=== PATIENT | male | born 1960 | race Caucasian/White ===

== ENCOUNTER → 2018-05-05 05:07 | Emergency (ER) | payer BC ==
[~2018-05-05 05:07] MED LIST: Potassium Chlor TAB* 20 MEQ TAB.ER PO ONE
--- NOTE | 2018-05-05 05:31 | ED ---
GI/ HPI - HPI Summary HPI Summary: This patient is a 58 year old M presenting to [facility] with a chief complaint of inability to urinate that began approximately at 0330. The patient rates the pain 10/10 in severity. Symptoms aggravated by nothing. Symptoms alleviated by nothing. Patient reports hematuria and dysuria. Patient denies fever and back pain. Patient states he has not had similar symptoms previously. - History of Current Complaint Chief Complaint: EDUrogenitalProblems Time Seen by Provider: 05/05/18 05:18 Stated Complaint: POSS UTI Hx Obtained From: Patient Onset/Duration: Started Hours Ago, Atraumatic, Still Present Timing: Constant Severity: Severe Current Severity: Severe Pain Intensity: 10 Associated Signs and Symptoms: Positive: Other: - Positive hematuria and dysuria. Negative fever and back pain. Aggravating Factor(s): Nothing Alleviating Factor(s): Nothing - Allergy/Home Medications Allergies/Adverse Reactions: Allergies Allergy/AdvReac Type Severity Reaction Status Date / Time No Known Allergies Allergy Verified 05/05/18 05:14 Home Medications: Home Medications Doxazosin TAB* 4 mg PO DAILY 05/05/18 [History Confirmed 05/05/18] Escitalopram (NF) 20 mg PO DAILY 05/05/18 [History Confirmed 05/05/18] Finasteride TAB* [Proscar TAB*] 5 mg PO DAILY 05/05/18 [History Confirmed ] Nebivolol TAB (NF) [Bystolic TAB (NF)] 5 mg PO DAILY 05/05/18 [History Confirmed 05/05/18] Rivaroxaban TAB(*) [Xarelto 20 mg] 1 tab PO BID 05/05/18 [History Confirmed 02/11] Valsartan/Hydrochlorothiazide [Valsartan-Hctz 160-25 mg Tab] 1 tab PO DAILY 02/11 [History Confirmed 05/05/18] amLODIPine TAB* [Norvasc 5 mg TAB*] 1 tab PO DAILY 05/05/18 [History Confirmed 05/05/18] PMH/Surg Hx/FS Hx/Imm Hx Previously Healthy: No Cardiovascular History: Reports: Hx Hypertension History: Reports: Other Problems/Disorders - Splenomegaly Infectious Disease History: No Infectious Disease History: Denies: Traveled Outside the [place] in Last 30 Days - Social History Occupation: Employed Full-time Lives: Alone Alcohol Use: None Hx Substance Use: No Substance Use Type: Reports: None Hx Tobacco Use: No Smoking Status (MU): Never Smoked Tobacco Review of Systems Negative: Fever Genitourinary: Other - Positive inability to urinate Positive: dysuria, hematuria Positive: Other - Negative back pain All Other Systems Reviewed And Are Negative: Yes Physical Exam - Summary Physical Exam Summary: VITAL SIGNS: Reviewed. GENERAL: Patient is a well-developed and nourished male who is lying comfortable in the stretcher. Patient is not in any acute respiratory distress. HEAD AND FACE: No signs of trauma. No ecchymosis, hematomas or skull depressions. No sinus tenderness. EYES: PERRLA, EOMI x 2, No injected conjunctiva, no nystagmus. EARS: Hearing grossly intact. Ear canals and tympanic membranes are within normal limits. MOUTH: Oropharynx within normal limits. NECK: Supple, trachea is midline, no adenopathy, no JVD, no carotid bruit, no c- spine tenderness, neck with full ROM. CHEST: Symmetric, no tenderness at palpation LUNGS: Clear to auscultation bilaterally. No wheezing or crackles. CVS: Regular rate and rhythm, S1 and S2 present, no murmurs or gallops appreciated. ABDOMEN: Soft, suprapubic fullness and tenderness. No signs of distention. No rebound no guarding, and no masses palpated. Bowel sounds are normal. EXTREMITIES: FROM in all major joints, no edema, no cyanosis or clubbing. NEURO: Alert and oriented x 3. No acute neurological deficits. Speech is normal and follows commands. SKIN: Dry and warm Triage Information Reviewed: Yes Vital Signs On Initial Exam: Initial Vitals Temp Pulse Resp BP Pulse Ox 98.7 F 90 16 156/81 100 05/05/18 05:09 05/05/18 05:09 05/05/18 05:09 05/05/18 05:09 05/05/18 05:09 Vital Signs Reviewed: Yes Diagnostics - Vital Signs Vital Signs Temp Pulse Resp BP Pulse Ox 05/05/18 05:09 98.7 F 90 16 156/81 100 - Laboratory Result Diagrams: 05/05/18 05:41 05/05/18 05:41 Lab Statement: Any lab studies that have been ordered have been reviewed, and results considered in the medical decision making process. Re-Evaluation - Re-Evaluation First Eval Re-Evaluation Time: 05:40 Change: Improved Comment: There is a liter of urine in the bag. The patient reports feeling better. GIGU Course/Dx - Course Course Of Treatment: This patient is a 58 year old M presenting to [facility] with a chief complaint of inability to urinate that began approximately 2 hours ago. Physical Exam Findings: Suprapubic fullness and tenderness. Bloodwork and UA obtained. In the ED course the patient was given potassium chlor. Patient will be discharged with follow up from PCP and urology. The patient is agreeable with this plan. - Diagnoses Provider Diagnoses: Acute urinary retention Discharge - Sign-Out/Discharge Documenting (check all that apply): Patient Departure - Discharge Plan Condition: Stable Disposition: HOME Patient Education Materials: Urinary Retention in Men (ED), Clinton Catheter Placement and Care (ED) Referrals: No Primary Care Phys,NOPCP [Primary Care Provider] - 2 Days Hamzah Slater MD [Medical Doctor] - 1 Day Additional Instructions: RETURN TO THE EMERGENCY DEPARTMENT FOR NEW OR WORSENING SYMPTOMS - Billing Disposition and Condition Condition: STABLE Disposition: Home - Attestation Statements Document Initiated by Scribe: Yes Documenting Scribe: Payton Gleason Provider For Whom Scribe is Documenting (Include Credential): Dr. Lily Arthur MD Scribe Attestation: Payton Resendiz scribed for Dr. Lily Arthur MD on 05/05/18 at 2131. Scribe Documentation Reviewed: Yes Provider Attestation: The documentation as recorded by the Payton cooney accurately reflects the service I personally performed and the decisions made by me, Dr. Lily Arthur MD Status of Scribe Document: Viewed
[2018-05-05 05:51] LABS: ABS Basophils 0 10^3/ul (0-0.2); ABS Eosinophils 0.1 10^3/ul (0-0.6); ABS Monocytes 0.5 10^3/ul (0-0.8); ABS Neutrophils 5.4 10^3/ul (1.5-7.7); ABS Nucleated RBC 0 10^3/ul; Eosinophil % 1.1 %; Hematocrit 43 % (42-52); Hemoglobin 14.4 g/dl (14.0-18.0); Lymphocyte % 14.2 %; Mean Corpuscular HGB Conc 34 g/dl (31-36); Mean Corpuscular Hemoglobin 30 pg (27-31); Mean Corpuscular Volume 89 fL (80-94); Mean Platelet Volume 9.2 fL (7.4-10.4); Nucleated Red Blood Cells % 0; Platelet Count 147 10^3/ul (150-450); Red Blood Count 4.82 10^6/ul (4.00-5.40); Red Cell Distribution Width 15 % (10.5-15); White Blood Count 6.9 10^3/ul (3.5-10.8)
[2018-05-05 05:57] LABS: Urine Appearance Clear; Urine Bacteria 1+ (Absent); Urine Bilirubin Negative (Negative); Urine Blood 2+ (Negative); Urine Color Straw; Urine Glucose Negative (Negative); Urine Ketones Negative (Negative); Urine Nitrite Negative (Negative); Urine Protein Negative (Negative); Urine Red Blood Cell Trace(0-2/hpf) (Absent); Urine Specific Gravity 1.005 (1.010-1.030); Urine Urobilinogen Negative (Negative); Urine White Blood Cell Absent (Absent)
[2018-05-05 06:01] LABS: Activated Partial Thrombo Time 37.4 seconds (26.0-36.3); INR 2.51 (0.77-1.02)
[2018-05-05 06:07] LABS: Albumin/Globulin Ratio 1.7 (1-3); BUN/Creatinine Ratio 23.1 (8-20); Calcium 10.2 mg/dL (8.6-10.3); EGFR Non-African American 63.8 (>60); Globulin 2.3 g/dL (2-4); Potassium 3.1 mmol/L (3.5-5.0); Total Bilirubin 0.9 mg/dL (0.2-1.0); Total Protein 6.3 g/dL (6.4-8.9)
[2018-05-05 06:33] VITALS: BP 96/59
== END | disposition home or self-care (01) ==
LOC: ED 05:07
DX: R33.9 Retention of urine, unspecified (principal); R31.9 Hematuria, unspecified; R30.0 Dysuria; I10 Essential (primary) hypertension
CPT/HCPCS: 36415; 80053; 81003; 81015; 85025; 85610; 85730; 87086; 99282; A9270-GY

== ENCOUNTER 2018-12-09 02:04 | Emergency (ER) | payer BC ==
--- NOTE | 2018-12-09 02:50 | ED ---
GI/ HPI - HPI Summary HPI Summary: Patient is a 58 y/o M presenting to ED with complaints of urinary retention and bladder spasms for the past day. Patient has PMHx of BPH and has an indwelling spaulding catheter in place. He notes that he has had this in place since April 2018. Patient estimates that he has had nine previous similar episodes. He had a recent infection as well, patient was placed on Cephalexin 500 mg BID. He finished this antibiotic three days ago. He denies fevers and chills. During previous episodes, he states that he had previous replacements of Spaulding catheters and notes that when balloon was decompressed, urine "shot out". Catheter was flushed and balloon decompressed, 100 cc urine produced. Patient reports that his bladder still felt "full". Catheter to be replaced. PMHx of HTN. FMHx of renal disease. Patient does not use tobacco, alcohol, or drugs. On triage, pain is rated 8/10, nothing is noted to aggravate/alleviate Sx. Home medications and allergies are reviewed. - History of Current Complaint Chief Complaint: EDUrogenitalProblems Time Seen by Provider: 12/09/18 02:20 Stated Complaint: CATH ISSUE PER PT Hx Obtained From: Patient Onset/Duration: Started Hours Ago, Still Present Timing: Constant, Lasting Hours Severity: Severe Current Severity: Severe Pain Intensity: 8 Location of Pain: Other - spasms at bladder area Pain Characteristics: Other: - spasms Associated Signs and Symptoms: Positive: Abdominal Pain - bladder spasms, Other : - positive - urinary retention; negative - chills. Negative: Fever - Allergy/Home Medications Allergies/Adverse Reactions: Allergies Allergy/AdvReac Type Severity Reaction Status Date / Time No Known Allergies Allergy Verified 12/09/18 02:08 PMH/Surg Hx/FS Hx/Imm Hx Cardiovascular History: Reports: Hx Hypertension History: Reports: Other Problems/Disorders - Splenomegaly, enlarged prostate Sensory History: Denies: Hx Deafness Infectious Disease History: No Infectious Disease History: Denies: Traveled Outside the [place] in Last 30 Days - Family History Known Family History: Positive: Renal Disease - Social History Alcohol Use: None Hx Substance Use: No Substance Use Type: Reports: None Hx Tobacco Use: No Smoking Status (MU): Never Smoked Tobacco Review of Systems Negative: Fever, Chills Genitourinary: Other - positive - urinary retention Positive: pain - positive - bladder spasms All Other Systems Reviewed And Are Negative: Yes Physical Exam - Summary Physical Exam Summary: Constitutional: Well-developed, Well-nourished, Alert. (-) Distressed Skin: Warm, Dry; Hyperpigmentation of the lower legs secondary to chronic BLE venous stasis. HENT: Normocephalic; Atraumatic Eyes: Conjunctiva normal Neck: Musculoskeletal ROM normal neck. (-) JVD, (-) Stridor, (-) Tracheal deviation Cardio: Rhythm regular, rate normal, Heart sounds normal; Intact distal pulses; The pedal pulses are 2+ and symmetric. Radial pulses are 2+ and symmetric. Pulmonary/Chest wall: Effort normal. (-) Respiratory distress, (-) Wheezes, (-) Rales Abd: Soft, (+) Suprapubic tenderness, (-) Distension, (-) Guarding, (-) Rebound Gential Exam: Indwelling spaulding catheter in place, no blood at the meatus Musculoskeletal: BLE venous stasis Neuro: Alert, Oriented x3 Psych: Mood and affect Normal Triage Information Reviewed: Yes Vital Signs On Initial Exam: Initial Vitals Temp Pulse Resp BP Pulse Ox 98 F 70 18 169/105 98 12/09/18 02:05 12/09/18 02:05 12/09/18 02:05 12/09/18 02:05 12/09/18 02:05 Vital Signs Reviewed: Yes Diagnostics - Vital Signs Vital Signs Temp Pulse Resp BP Pulse Ox 12/09/18 02:05 98 F 70 18 169/105 98 - Laboratory Lab Statement: Any lab studies that have been ordered have been reviewed, and results considered in the medical decision making process. Re-Evaluation - Re-Evaluation First Eval Re-Evaluation Time: 03:15 Comment: UA is positive for UTI, could be contributing to hematuria and clot that caused obstruction, will treat with ten days of Keflex, follow up with urology. Results discussed with patient, he is agreeable with discharge plan. GIGU Course/Dx - Course Course Of Treatment: Patient is a 58 y/o M presenting to ED with complaints of urinary retention and bladder spasms for the past day. Patient has PMHx of BPH and has an indwelling spaulding catheter in place. He notes that he has had this in place since April 2018. Patient estimates that he has had nine previous similar episodes. He had a recent infection as well, patient was placed on Cephalexin 500 mg BID. He finished this antibiotic three days ago. He denies fevers and chills. On physical exam, suprapubic tenderness is noted, indwelling spaulding catheter in place, no blood at the meatus, chronic hyperpigmentation of the lower legs secondary to chronic BLE venous stasis. Spaulding catheter was flushed and balloon decompressed, 100 cc dark urine produced. Spaulding catheter was replaced, 600 cc of urine obtained. UA is positive for UTI, could be contributing to hematuria and clot that caused obstruction, will treat with ten days of Keflex. He was given 500 mg Keflex in ED. Patient discharged and to follow up with urology and PCP. - Diagnoses Provider Diagnoses: UTI (urinary tract infection), Obstruction of Spaulding catheter Discharge - Sign-Out/Discharge Documenting (check all that apply): Patient Departure - discharge Patient Received Moderate/Deep Sedation with Procedure: No - Discharge Plan Condition: Stable Disposition: HOME Prescriptions: Cephalexin CAP* [Keflex CAP*] 500 mg PO TID 10 Days #29 cap Patient Education Materials: Urinary Tract Infection in Men (DC), Spaulding Catheter Placement and Care (ED) Referrals: Tyler Oshea MD [Primary Care Provider] - - Billing Disposition and Condition Condition: STABLE Disposition: Home - Attestation Statements Document Initiated by Izabella: Yes Documenting Scribe: CELIA SARMIENTO Provider For Whom Izabella is Documenting (Include Credential): THERESA RASMUSSEN MD Scribe Attestation: CELIA Resendiz, scribed for THERESA RASMUSSEN MD on 12/09/18 at 0652. Scribe Documentation Reviewed: Yes Provider Attestation: The documentation as recorded by the CELIA cooney accurately reflects the service I personally performed and the decisions made by me, THERESA RASMUSSEN MD Status of Scribe Document: Viewed
[2018-12-09 03:13] LABS: Urine Appearance Cloudy; Urine Bacteria 1+ (Absent); Urine Bilirubin Negative (Negative); Urine Blood 3+ (Negative); Urine Color Yellow; Urine Glucose Negative (Negative); Urine Ketones Negative (Negative); Urine Nitrite Negative (Negative); Urine Protein 1+(30 mg/dL) (Negative); Urine Red Blood Cell 3+(>10/hpf) (Absent); Urine Urobilinogen Negative (Negative); Urine White Blood Cell 3+(>20/hpf) (Absent)
[2018-12-09] MEDS ORDERED: Cephalexin CAP* 500 MG PO ONE (03:14)
[2018-12-09 03:47] VITALS: BP 148/90
== END 2018-12-09 03:46 | disposition home or self-care (01) ==
LOC: ED 02:04
DX: N39.0 Urinary tract infection, site not specified (principal); T83.098A Other mechanical complication of other urinary catheter, initial encounter; I10 Essential (primary) hypertension
CPT/HCPCS: 81003; 81015; 87077; 87086; 87186; 99282; A9270-GY

== ENCOUNTER 2018-12-10 00:46 | Emergency (ER) | payer BC ==
--- NOTE | 2018-12-10 01:25 | ED ---
GI/ HPI - HPI Summary HPI Summary: This pt is a 58 Y/O M presenting to [facility] with a CC of a clogged spaulding catheter. He states that he was here on 12/09/18 and had his catheter replaced. The last time his spaulding was emptied was 221412/09/18. He states that he has suprapubic abdominal pain that is rated a 6/10 in severity. He denies any CP, SOB, N/V, headaches, fevers, and chill. He stated no alleviating factors. He has a PMHx of hypertension, splenomegaly, enlarged prostate, and renal disease is in his FHx. - History of Current Complaint Chief Complaint: EDUrogenitalProblems Time Seen by Provider: 12/10/18 00:55 Stated Complaint: PLUGGED CATH PER PT Hx Obtained From: Patient Onset/Duration: Started Hours Ago - symptoms started after 221412/09/18, Still Present, Worse Since Timing: Constant Severity: Mild Current Severity: Moderate Pain Intensity: 6 Location of Pain: Suprapubic Associated Signs and Symptoms: Positive: Negative - SOB, headaches, Abdominal Pain - suprapubic, Other: - Pt states that his spaulding catheter is clogged. Negative: Nausea, Vomiting, Fever, Chills, Chest Pain Aggravating Factor(s): Urination - Pt is unable to urinate Alleviating Factor(s): Nothing - Allergy/Home Medications Allergies/Adverse Reactions: Allergies Allergy/AdvReac Type Severity Reaction Status Date / Time No Known Allergies Allergy Verified 12/10/18 00:51 PMH/Surg Hx/FS Hx/Imm Hx Previously Healthy: Yes Cardiovascular History: Reports: Hx Hypertension History: Reports: Other Problems/Disorders - Splenomegaly, enlarged prostate Sensory History: Denies: Hx Deafness Infectious Disease History: No Infectious Disease History: Denies: Traveled Outside the [place] in Last 30 Days - Family History Known Family History: Positive: Renal Disease - Social History Alcohol Use: None Hx Substance Use: No Substance Use Type: Reports: None Hx Tobacco Use: No Smoking Status (MU): Never Smoked Tobacco Review of Systems Negative: Fever, Chills Negative: Chest Pain Negative: Shortness Of Breath Positive: Abdominal Pain - suprapubic. Negative: Vomiting, Nausea Positive: other - Pt is unable to urinate due to a clog in his spaulding catheter Negative: Headache All Other Systems Reviewed And Are Negative: Yes Physical Exam - Summary Physical Exam Summary: Appearance: Well appearing, no pain distress Skin: warm, dry, reflects adequate perfusion Head/face: normal Eyes: EOMI, JEROME ENT: normal Neck: supple, non-tender Respiratory: CTA, breath sounds present Cardiovascular: RRR, pulses symmetrical Abdomen: suprapubic is tender, soft, spaulding catheter in place and clogged Musculoskeletal: normal, strength/ROM intact Neuro: normal, sensory motor intact, A&Ox3 Triage Information Reviewed: Yes Vital Signs On Initial Exam: Initial Vitals Temp Pulse Resp BP Pulse Ox 98.4 F 92 16 180/117 98 12/10/18 00:48 12/10/18 00:48 12/10/18 00:48 12/10/18 00:48 12/10/18 00:48 Vital Signs Reviewed: Yes Diagnostics - Vital Signs Vital Signs Temp Pulse Resp BP Pulse Ox 12/10/18 00:48 98.4 F 92 16 180/117 98 - Laboratory Result Diagrams: 12/10/18 03:57 12/10/18 03:57 Lab Statement: Any lab studies that have been ordered have been reviewed, and results considered in the medical decision making process. GIGU Course/Dx - Course Course Of Treatment: This pt is a 58 Y/O M presenting to [facility] with a CC of a clogged spaulding catheter. He states that he was here on 12/09/18 and had his catheter replaced. His PE found that his spaulding catheter is in place and clogged and he has suprapubic tenderness. His lab results were reveiwed. Dr. Tate saw the pt and recommended the pt to be discharged with a new spaulding catheter. He will be discharged with a Dx of complications to a fully catheter and hematuria - Diagnoses Provider Diagnoses: Hematuria, Complication of Spaulding catheter - Physician Notifications Discussed Care Of Patient With: Hamzah Slater Time Discussed With Above Provider: 06:36 Instructed by Provider To: Other - Dr. Tate saw the pt and recommended the pt to be discharged with a new spaulding catheter. Discharge - Sign-Out/Discharge Documenting (check all that apply): Patient Departure - discharge Patient Received Moderate/Deep Sedation with Procedure: No - Discharge Plan Condition: Stable Disposition: HOME Patient Education Materials: Hematuria (ED), Spaulding Catheter Placement and Care (ED) Referrals: Tyler Oshea MD [Primary Care Provider] - 2 Days Additional Instructions: PLEASE FOLLOW UP WITH YOUR PRIMARY CARE PHYSICIAN IN 1-3 DAYS AND RETRUN THE EMERGENCY DEPARTMENT FOR ANY NEW OR WORSENING SYMPTOMS. - Attestation Statements Document Initiated by Scribe: Yes Documenting Scribe: Luciano Looney Provider For Whom Scribe is Documenting (Include Credential): Carlos Brody MD Scribe Attestation: I, Luciano Looney, scribed for Carlos Brody MD on 12/10/18 at 0636. Status of Scribe Document: Ready
[2018-12-10 04:07] LABS: ABS Eosinophils 0.1 10^3/ul (0-0.6); ABS Lymphocytes 1.2 10^3/ul (1.0-4.8); ABS Monocytes 0.5 10^3/ul (0-0.8); ABS Neutrophils 4.4 10^3/ul (1.5-7.7); Eosinophil % 1.5 %; Hematocrit 33 % (42-52); Hemoglobin 11.3 g/dL (14.0-18.0); Lymphocyte % 19.4 %; Mean Corpuscular HGB Conc 34 g/dL (31-36); Mean Corpuscular Hemoglobin 31 pg (27-31); Mean Corpuscular Volume 90 fL (80-94); Mean Platelet Volume 7.5 fL (7.4-10.4); Nucleated Red Blood Cells % 0.1; Platelet Count 127 10^3/uL (150-450); Red Blood Count 3.69 10^6 /uL (4.18-5.48); Red Cell Distribution Width 15 % (10-15); White Blood Count 6.2 10^3/uL (3.5-10.8)
[2018-12-10 04:16] LABS: Activated Partial Thrombo Time 41.8 seconds (26.0-38.0); INR 2.12 (0.82-1.09)
[2018-12-10 04:25] LABS: Albumin 3.4 g/dL (3.2-5.2); Albumin/Globulin Ratio 1.5 (1-3); Calcium 9.5 mg/dL (8.6-10.3); EGFR African American 92.5 (>60); EGFR Non-African American 76.5 (>60); Globulin 2.2 g/dL (2-4); Potassium 3.4 mmol/L (3.5-5.0); Total Bilirubin 0.4 mg/dL (0.2-1.0); Total Protein 5.6 g/dL (6.4-8.9)
[2018-12-10 04:30] LABS: Urine Appearance Cloudy; Urine Bacteria Absent (Absent); Urine Bilirubin Negative (Negative); Urine Blood 3+ (Negative); Urine Glucose Negative (Negative); Urine Ketones Negative (Negative); Urine Nitrite Negative (Negative); Urine Protein 1+(30 mg/dL) (Negative); Urine Red Blood Cell 3+(>10/hpf) (Absent); Urine Specific Gravity 1.004 (1.010-1.030); Urine Urobilinogen Negative (Negative); Urine White Blood Cell Trace(0-5/hpf) (Absent)
[2018-12-10 05:48] LABS: Urine Color Red
[2018-12-10 07:09] VITALS: BP 122/74
--- NOTE | 2018-12-10 09:31 | CONS ---
CONSULTATION NOTE: DATE OF CONSULT: 12/10/18 HISTORY OF PRESENT ILLNESS: I was asked by Dr. Brody from the emergency room staff to see this 58-year-old male with persistent gross hematuria and clot urinary retention. Mr. Mosqueda has prostate enlargement and bladder outlet obstruction and has been maintained on chronic Clinton catheter drainage. He is also maintained on anticoagulation because of history of pulmonary embolism and he was found not be a candidate for prostate surgery because of this unsafety of discontinuing his anticoagulation. He was worked up in our office by Dr. Reyes including a cystoscopy, which showed a large obstructing prostate. He has been maintained on finasteride. The patient had several episodes of clot urinary retention, which were attributed to bleeding from his prostatic urethra and had required irrigations in the past including yesterday. He presented again early this morning to the emergency room with clot urinary retention. The emergency room staff replaced his Clinton, irrigated him and then put him on continuous bladder irrigation through an 18-Maltese Clinton. Because of persistent hematuria, a consultation was obtained. The patient denies any heavy lifting or straining or heavy physical activity prior to the onset of the hematuria. He denies any trauma to his Clinton. When I saw the patient early this morning, his urine on CBI looked pinkish. I tried to irrigate and a few clots were evacuated. His Clinton catheter was removed and I placed a 22-Maltese Clinton catheter. Forceful irrigation was then performed irrigating several clots until the returns were completely clear. He was then observed for another hour in the emergency room, when I rechecked him, his urine continued to be clear and did not require any additional irrigation. The plan is to discharge the patient home with the 22-Maltese Clinton catheter. He was advised to avoid any heavy physical activities. He is supposed to continue on the anticoagulation considering his history of PE. He will be following in our office. [id number]/[facility] #: [id number] [facility] HOSPITALJad
--- NOTE | 2018-12-13 06:56 | PN ---
Progress Note - Progress Note Date of Service: 12/09/18 Note: Pt. with indwelling spaulding. Pt. seen in ED 12/09 and 12/10. Urine culture from is growing ESBL e. coli >100k but urine culture from 12/10 shows no growth. Will not treat at this time.
== END 2018-12-10 06:07 | disposition home or self-care (01) ==
LOC: ED 00:46
DX: T83.098A Other mechanical complication of other urinary catheter, initial encounter (principal); N40.0 Benign prostatic hyperplasia without lower urinary tract symptoms; R31.9 Hematuria, unspecified; I10 Essential (primary) hypertension
CPT/HCPCS: 36415; 51702; 80053; 81003; 81015; 85025; 85610; 85730; 87086; 99284

== ENCOUNTER 2019-01-25 21:43 | Emergency (ER) | payer BC ==
--- NOTE | 2019-01-25 23:18 | ED ---
GI/ HPI - HPI Summary HPI Summary: Patient complains of blocked urinary Clinton catheter, abdominal cramping and spasm times a few hours. History of indwelling urinary catheter. - History of Current Complaint Chief Complaint: EDUrogenitalProblems Time Seen by Provider: 01/25/19 23:13 Stated Complaint: URINE CATH BLOCKED Hx Obtained From: Patient Onset/Duration: Started Hours Ago Timing: Constant Severity: Moderate Current Severity: Moderate Pain Intensity: 6 Location of Pain: Suprapubic Pain Characteristics: Cramping Associated Signs and Symptoms: Positive: Negative Aggravating Factor(s): Nothing Alleviating Factor(s): Nothing - Allergy/Home Medications Allergies/Adverse Reactions: Allergies Allergy/AdvReac Type Severity Reaction Status Date / Time No Known Allergies Allergy Verified 01/25/19 21:49 PMH/Surg Hx/FS Hx/Imm Hx Endocrine/Hematology History: Denies: Hx Sickle Cell Disease Cardiovascular History: Reports: Hx Hypertension History: Reports: Other Problems/Disorders - Splenomegaly, enlarged prostate Sensory History: Denies: Hx Deafness Opthamlomology History: Denies: Hx Legally Blind Neurological History: Denies: Hx Developmental Delay Infectious Disease History: No Infectious Disease History: Denies: Traveled Outside the [place] in Last 30 Days - Family History Known Family History: Positive: Renal Disease - Social History Alcohol Use: None Hx Substance Use: No Substance Use Type: Reports: None Hx Tobacco Use: No Smoking Status (MU): Never Smoked Tobacco Review of Systems Constitutional: Negative Eyes: Negative ENT: Negative Cardiovascular: Negative Respiratory: Negative Gastrointestinal: Negative Positive: dysuria Musculoskeletal: Negative Skin: Negative Neurological: Negative Psychological: Normal All Other Systems Reviewed And Are Negative: Yes Physical Exam Triage Information Reviewed: Yes Vital Signs On Initial Exam: Initial Vitals Temp Pulse Resp BP Pulse Ox 98.3 F 90 16 191/102 97 01/25/19 21:45 01/25/19 21:45 01/25/19 21:45 01/25/19 21:45 01/25/19 21:45 Vital Signs Reviewed: Yes Appearance: Positive: Well-Appearing Skin: Positive: Warm Head/Face: Positive: Normal Head/Face Inspection Eyes: Positive: Normal Neck: Positive: Supple Respiratory/Lung Sounds: Positive: Clear to Auscultation Cardiovascular: Positive: Normal Abdomen Description: Positive: Nontender Musculoskeletal: Positive: Normal Neurological: Positive: Normal Psychiatric: Positive: Normal AVPU Assessment: Alert - Prosperity Coma Scale Best Eye Response: 4 - Spontaneous Best Motor Response: 6 - Obeys Commands Best Verbal Response: 5 - Oriented Coma Scale Total: 15 Procedures - Sedation Patient Received Moderate/Deep Sedation with Procedure: No Diagnostics - Vital Signs Vital Signs Temp Pulse Resp BP Pulse Ox 01/25/19 21:45 98.3 F 90 16 191/102 97 - Laboratory Lab Statement: Any lab studies that have been ordered have been reviewed, and results considered in the medical decision making process. GIGU Course/Dx - Course Course Of Treatment: Patient complains of blocked urinary Clinton catheter, abdominal cramping and spasm times a few hours. History of indwelling urinary catheter. Vital signs within normal limits. Positive UTI. Rx for Cipro. Will follow-up with urology tomorrow. - Diagnoses Provider Diagnoses: Blocked urinary catheter, UTI (urinary tract infection) Discharge ED - Sign-Out/Discharge Documenting (check all that apply): Patient Departure - Discharge Plan Condition: Stable Disposition: HOME Prescriptions: Ciprofloxacin HCl [Cipro] 500 mg PO BID 10 Days #20 tablet Patient Education Materials: Clinton Catheter Placement and Care (ED), Catheter- associated Urinary Tract Infection (ED) Referrals: Tyler Oshea MD [Primary Care Provider] - Additional Instructions: Follow-up with your urologist Dr. Reyes tomorrow to confirm choice of antibiotic. Return to the ED for any new or worsening symptoms. - Billing Disposition and Condition Condition: STABLE Disposition: Home - Attestation Statements Provider Attestation: I was available for consult. This patient was seen by the RAQUEL. The patient was not presented to, seen by, or examined by me. Maximo Krause MD
[2019-01-26 00:04] LABS: Urine Appearance Cloudy; Urine Bacteria 1+ (Absent); Urine Bilirubin Negative (Negative); Urine Blood 3+ (Negative); Urine Color Yellow; Urine Glucose Negative (Negative); Urine Ketones Negative (Negative); Urine Nitrite Positive (Negative); Urine Protein 1+(30 mg/dL) (Negative); Urine Red Blood Cell 3+(>10/hpf) (Absent); Urine Urobilinogen Negative (Negative); Urine White Blood Cell 3+(>20/hpf) (Absent)
[2019-01-26] MEDS ORDERED: Ciprofloxacin TAB* 500 MG PO ONE (00:27)
[2019-01-26 00:52] VITALS: BP 133/71
--- NOTE | 2019-01-28 06:13 | ED ---
Imaging and Labs Follow Up Follow Up Type: Labs/Cultures Labs/Culture Result: E coli 100,000 Patient Communication/Plan: Pt placed on cipro - awaiting sensitivities Provider Diagnoses: Blocked urinary catheter, UTI (urinary tract infection)
--- NOTE | 2019-01-29 13:39 | ED ---
Imaging and Labs Follow Up Follow Up Type: Labs/Cultures Labs/Culture Result: ESBL - consistent with all previous findings on UTI Patient Communication/Plan: Patient asymptomatic of symptoms Pt results consistent with previous ESBL results Pt not treated in past Will send results to urology No change/additions of medications Provider Diagnoses: Blocked urinary catheter, UTI (urinary tract infection)
== END 2019-01-26 01:00 | disposition home or self-care (01) ==
LOC: ED 21:43
DX: T83.098A Other mechanical complication of other urinary catheter, initial encounter (principal); N39.0 Urinary tract infection, site not specified; I10 Essential (primary) hypertension; R16.1 Splenomegaly, not elsewhere classified; N40.0 Benign prostatic hyperplasia without lower urinary tract symptoms
CPT/HCPCS: 81003; 81015; 87077; 87086; 87186; 99282; A9270-GY

== ENCOUNTER 2019-02-12 03:27 | Emergency (ER) | payer BC ==
--- NOTE | 2019-02-12 05:14 | ED ---
GI/ HPI - HPI Summary HPI Summary: This patient is a 58 year old M presenting to [facility] with a chief complaint of blocked catheter since 2329. Pt has had catheter since April. His catheter is obstructed and he last urine output was 2330 on 02/11/19. This has occurred before and irrigation never works. Per triage, the patient rates the pain 8/10 in severity. - History of Current Complaint Chief Complaint: EDUrogenitalProblems Time Seen by Provider: 02/12/19 03:58 Stated Complaint: CATHER ISSUE PER PT Hx Obtained From: Patient Onset/Duration: Started Hours Ago Timing: Constant Severity: Severe Current Severity: Moderate Pain Intensity: 5 Associated Signs and Symptoms: Positive: Hematuria Aggravating Factor(s): Nothing Alleviating Factor(s): Nothing - Allergy/Home Medications Allergies/Adverse Reactions: Allergies Allergy/AdvReac Type Severity Reaction Status Date / Time No Known Allergies Allergy Verified 01/25/19 21:49 PMH/Surg Hx/FS Hx/Imm Hx Endocrine/Hematology History: Denies: Hx Sickle Cell Disease Cardiovascular History: Reports: Hx Hypertension History: Reports: Other Problems/Disorders - Splenomegaly, enlarged prostate Sensory History: Denies: Hx Legally Blind, Hx Deafness Opthamlomology History: Denies: Hx Legally Blind Neurological History: Denies: Hx Developmental Delay - Immunization History Date of Tetanus Vaccine: utd Date of Influenza Vaccine: 02/11/19 Infectious Disease History: No Infectious Disease History: Denies: Traveled Outside the [place] in Last 30 Days - Family History Known Family History: Positive: Renal Disease - Social History Alcohol Use: None Hx Substance Use: No Substance Use Type: Reports: None Hx Tobacco Use: No Smoking Status (MU): Never Smoked Tobacco Review of Systems Negative: Fever Positive: hematuria, urgency All Other Systems Reviewed And Are Negative: Yes Physical Exam - Summary Physical Exam Summary: Appearance: Well-appearing, Well-nourished, Middle age man, standing appears uncomfortable Skin: Warm, dry, no obvious rash Eyes: sclera anicteric, no conjunctival pallor ENT: mucous membranes moist Neck: deferred Respiratory: No signs of respiratory distress Cardiovascular: Appears well perfused, pulses are nml Abdomen: deferred Musculoskeletal: Moving all 4 extremities without obvious discomfort Neurological: Awake and alert, mentation is normal, speech is fluent and appropriate Psychiatric: affect is normal, does not appear anxious or depressed Triage Information Reviewed: Yes Vital Signs On Initial Exam: Initial Vitals Temp Pulse Resp BP Pulse Ox 99.7 F 81 18 174/102 99 02/12/19 03:31 02/12/19 03:31 02/12/19 03:31 02/12/19 03:31 02/12/19 03:31 Vital Signs Reviewed: Yes Procedures - Sedation Patient Received Moderate/Deep Sedation with Procedure: No Diagnostics - Vital Signs Vital Signs Temp Pulse Resp BP Pulse Ox 02/12/19 03:31 99.7 F 81 18 174/102 99 - Laboratory Lab Statement: Any lab studies that have been ordered have been reviewed, and results considered in the medical decision making process. Re-Evaluation - Re-Evaluation Second Eval Re-Evaluation Time: 04:45 Comment: Discussed results and plan of care with pt. GIGU Course/Dx - Course Course Of Treatment: This patient is a 58 year old M presenting to [facility] with a chief complaint of blocked catheter since 2329. Pt has had catheter since April. His catheter is obstructed and he last urine output was 2330 on . This has occurred before and irrigation never works. Per triage, the patient rates the pain 8/10 in severity. Blood work obtained. UA obtained. Patient will be discharged. The patient is agreeable with this plan. - Diagnoses Provider Diagnoses: Clinton catheter problem Discharge ED - Sign-Out/Discharge Documenting (check all that apply): Patient Departure - Discharge - Discharge Plan Condition: Good Disposition: HOME Patient Education Materials: Clinton Catheter Placement and Care (ED) Referrals: Tyler Oshea MD [Primary Care Provider] - If Needed - Billing Disposition and Condition Condition: GOOD Disposition: Home - Attestation Statements Document Initiated by Asiaibruthie: Yes Documenting Scribe: Devi Tiwari Provider For Whom Izabella is Documenting (Include Credential): Jon Hobbs MD Scribe Attestation: Devi Resendiz scribed for Jon Hobbs MD on 02/13/19 at 0202. Scribe Documentation Reviewed: Yes Provider Attestation: The documentation as recorded by the Devi cooney accurately reflects the service I personally performed and the decisions made by me, Jon Hobbs MD Status of Scribe Document: Viewed
[2019-02-12 05:57] VITALS: BP 135/86
== END 2019-02-12 05:15 | disposition home or self-care (01) ==
LOC: ED 03:27
DX: T83.098A Other mechanical complication of other urinary catheter, initial encounter (principal); R31.9 Hematuria, unspecified; I10 Essential (primary) hypertension
CPT/HCPCS: 51702; 99282

== ENCOUNTER 2019-03-05 19:51 | Emergency (ER) | payer BC ==
--- NOTE | 2019-03-05 19:57 | ED ---
Complaint/Male - History of Current Complaint Chief Complaint: EDUrogenitalProblems Time Seen by Provider: 03/05/19 19:57 - Allergies/Home Medications Allergies/Adverse Reactions: Allergies Allergy/AdvReac Type Severity Reaction Status Date / Time No Known Allergies Allergy Verified 03/05/19 19:54 PMH/Surg Hx/FS Hx/Imm Hx Endocrine/Hematology History: Denies: Hx Sickle Cell Disease Cardiovascular History: Reports: Hx Hypertension History: Reports: Other Problems/Disorders - Splenomegaly, enlarged prostate Sensory History: Denies: Hx Legally Blind, Hx Deafness Opthamlomology History: Denies: Hx Legally Blind Neurological History: Denies: Hx Developmental Delay - Immunization History Date of Tetanus Vaccine: utd Date of Influenza Vaccine: 02/11/19 Infectious Disease History: No Infectious Disease History: Denies: Traveled Outside the [place] in Last 30 Days - Family History Known Family History: Positive: Renal Disease - Social History Alcohol Use: None Hx Substance Use: No Substance Use Type: Reports: None Hx Tobacco Use: No Smoking Status (MU): Never Smoked Tobacco Physical Exam Vital Signs On Initial Exam: Initial Vitals Temp Pulse Resp BP Pulse Ox 99.3 F 84 15 177/98 99 03/05/19 19:53 03/05/19 19:53 03/05/19 19:53 03/05/19 19:53 03/05/19 19:53 Diagnostics - Vital Signs Vital Signs Temp Pulse Resp BP Pulse Ox 03/05/19 19:53 99.3 F 84 15 177/98 99 - Laboratory Lab Statement: Any lab studies that have been ordered have been reviewed, and results considered in the medical decision making process.
--- NOTE | 2019-03-05 19:57 | ED ---
GI/ HPI - HPI Summary HPI Summary: 58 yo male presents with blocked catheter. He tells me that over the last few months he has been seen multiple times for blood clots in his indwelling catheter. About 1 hour [employer] he noticed that he had the urge to urinate and went to the bathroom and noticed his bag was empty. He relaxed and eventually passed a blood clot followed by dark red urine. He is concerned there are more clots and that he will become blocked again as this is what has happened multiple times in the past - he is here to "get ahead of it". He recalls one time in November of this year when Urology saw him in the ED and used a 22 iranian spaulding with "forceful irrigation" to dislodge several clots until resolved. Currently he denies fever, chills, abdominal pain, back pain, n/v. - History of Current Complaint Chief Complaint: EDUrogenitalProblems Time Seen by Provider: 03/05/19 19:57 Stated Complaint: BLOOD IN URINE PER PT Hx Obtained From: Patient Vaginal Bleeding Description: Brownish-Red Pain Intensity: 0 - Allergy/Home Medications Allergies/Adverse Reactions: Allergies Allergy/AdvReac Type Severity Reaction Status Date / Time No Known Allergies Allergy Verified 03/05/19 19:54 PMH/Surg Hx/FS Hx/Imm Hx Endocrine/Hematology History: Denies: Hx Diabetes, Hx Sickle Cell Disease Cardiovascular History: Reports: Hx Hypertension Respiratory History: Reports: Hx Pulmonary Embolism History: Reports: Other Problems/Disorders - Splenomegaly, enlarged prostate Sensory History: Denies: Hx Legally Blind, Hx Deafness Opthamlomology History: Denies: Hx Legally Blind Neurological History: Denies: Hx Developmental Delay - Immunization History Date of Tetanus Vaccine: utd Date of Influenza Vaccine: 02/11/19 Infectious Disease History: No Infectious Disease History: Denies: Traveled Outside the [place] in Last 30 Days - Family History Known Family History: Positive: Renal Disease - Social History Lives: With Family Alcohol Use: None Hx Substance Use: No Substance Use Type: Reports: None Hx Tobacco Use: No Smoking Status (MU): Never Smoked Tobacco Review of Systems Constitutional: Negative Cardiovascular: Negative Respiratory: Negative Gastrointestinal: Negative Positive: hematuria Skin: Negative Neurological: Negative Psychological: Normal All Other Systems Reviewed And Are Negative: No Physical Exam - Summary Physical Exam Summary: GENERAL: NAD. WDWN. No pain distress. SKIN: No rashes, sores, lesions, or open wounds. NECK: Supple. Nontender. No lymphadenopathy. CHEST: CTAB. No r/r/w. No accessory muscle use. Breathing comfortably and in no distress. CV: RRR. Pulses intact. Cap refill <2seconds ABDOMEN: Soft. NTTP. No distention or guarding. No CVA tenderness. Bowel sounds present NEURO: Alert. PSYCH: Age appropriate behavior. Triage Information Reviewed: Yes Vital Signs On Initial Exam: Initial Vitals Temp Pulse Resp BP Pulse Ox 99.3 F 84 15 177/98 99 03/05/19 19:53 03/05/19 19:53 03/05/19 19:53 03/05/19 19:53 03/05/19 19:53 Vital Signs Reviewed: Yes Procedures - Sedation Patient Received Moderate/Deep Sedation with Procedure: No Diagnostics - Vital Signs Vital Signs Temp Pulse Resp BP Pulse Ox 03/05/19 19:53 99.3 F 84 15 177/98 99 - Laboratory Result Diagrams: 03/05/19 20:27 03/05/19 20:27 Lab Statement: Any lab studies that have been ordered have been reviewed, and results considered in the medical decision making process. GIGU Course/Dx - Course Course Of Treatment: In the ED pt's catheter was irrigated and several blood clots were removed. His indwelling was replaced with a 20 iranian as no 22 Chinese were available. A large clot was dislodged and flushed during replacement of catheter. His UA shows signs of UTI and pt has grown ESBL in the past, but states his UA is always positive and he does not usually treat these. He has no urinary symptoms currently. Discussed this with Dr. Slater of Urology and he states no treatment unless pt symptomatic or has indications of sepsis. No SIRS criteria met at this time and pt asymptomatic. Will dc with f/u with Urology within 2 days - Diagnoses Differential Diagnoses - Male: Gastroenteritis (Bacterial) Provider Diagnoses: Obstructed Spaulding catheter Discharge ED - Sign-Out/Discharge Documenting (check all that apply): Patient Departure - Discharge Plan Condition: Stable Disposition: HOME Patient Education Materials: Spaulding Catheter Placement and Care (ED) Referrals: Tyler Oshea MD [Primary Care Provider] - Davin Reyes MD [Medical Doctor] - 1 Day Additional Instructions: If you develop a fever, shortness of breath, chest pain, new or worsening symptoms - please call your PCP or go to the ED immediately. Your blood pressure was high at todays visit. Please see your primary provider within 4 weeks for recheck and re-evaluation. Please follow up with Urology within 2 days for a recheck of your continuing blocked catheter - Billing Disposition and Condition Condition: STABLE Disposition: Home
[2019-03-05 20:33] LABS: ABS Eosinophils 0.2 10^3/ul (0-0.6); ABS Lymphocytes 1.3 10^3/ul (1.0-4.8); ABS Monocytes 0.9 10^3/ul (0-0.8); ABS Neutrophils 6.5 10^3/ul (1.5-7.7); Eosinophil % 2.3 %; Hematocrit 43 % (42-52); Hemoglobin 14.4 g/dL (14.0-18.0); Lymphocyte % 14.3 %; Mean Corpuscular HGB Conc 34 g/dL (31-36); Mean Corpuscular Hemoglobin 30 pg (27-31); Mean Corpuscular Volume 89 fL (80-94); Mean Platelet Volume 7.7 fL (7.4-10.4); Platelet Count 152 10^3/uL (150-450); Red Cell Distribution Width 14 % (10-15); White Blood Count 8.8 10^3/uL (3.5-10.8)
[2019-03-05 20:42] LABS: Urine Appearance Turbid; Urine Bacteria 3+ (Absent); Urine Bilirubin Negative (Negative); Urine Blood 3+ (Negative); Urine Glucose Negative (Negative); Urine Ketones Negative (Negative); Urine Nitrite Positive (Negative); Urine Protein 2+(100 mg/dL) (Negative); Urine Red Blood Cell 3+(>10/hpf) (Absent); Urine Specific Gravity 1.017 (1.010-1.030); Urine Urobilinogen Negative (Negative); Urine White Blood Cell 3+(>20/hpf) (Absent)
[2019-03-05 20:48] LABS: Urine Color Amber
[2019-03-05 20:49] LABS: Albumin/Globulin Ratio 1.6 (1-3); BUN/Creatinine Ratio 23.8 (8-20); Calcium 9.8 mg/dL (8.6-10.3); EGFR African American 87.5 (>60); EGFR Non-African American 72.3 (>60); Globulin 2.5 g/dL (2-4); Potassium 3.7 mmol/L (3.5-5.0); Total Bilirubin 0.4 mg/dL (0.2-1.0); Total Protein 6.5 g/dL (6.4-8.9)
[2019-03-05 21:24] VITALS: BP 164/85
--- NOTE | 2019-03-08 05:36 | ED ---
Imaging and Labs Follow Up Follow Up Type: Labs/Cultures Labs/Culture Result: Urine culture preliminary grew Escherichia coli 100,000 Patient Communication/Plan: This was from indwelling catheter Patient Communication/Plan: Patient was told to follow up with urology and typically does not treat positive UTIs due to his indwelling catheter Patient will follow-up with urology and we will not treat at this time Provider Diagnoses: Obstructed Clinton catheter
== END 2019-03-05 21:23 | disposition home or self-care (01) ==
LOC: ED 19:51
DX: T83.091A Other mechanical complication of indwelling urethral catheter, initial encounter (principal); I10 Essential (primary) hypertension; Z86.711 Personal history of pulmonary embolism; Z96.0 Presence of urogenital implants
CPT/HCPCS: 36415; 80053; 81003; 81015; 85025; 87077; 87086; 87186; 99282